=== PATIENT | female | born 1995 | race Caucasian/White ===

== ENCOUNTER 2017-01-19 08:28 | Emergency (ER) | payer OTHER ==
[~2017-01-19] VITALS: Ht 160 cm; Wt 53.5 kg
[~2017-01-19 08:28] MED LIST: GENERESS FE 0.01 CTB PO
[2017-01-19 08:58] LABS: ABSOLUTE BASOPHIL COUNT 0 /CUMM (0.0-0.2); ABSOLUTE EOSINOPHIL COUNT 0 /CUMM (0.0-0.7); ABSOLUTE LYMPH COUNT 2.2 /CUMM (1.2-3.4); ABSOLUTE MONOCYTE COUNT 0.4 /CUMM (0.10-0.60); BASOPHIL % 0.4 % (0.0-2.0); EOSINOPHIL % 0.7 % (0-5); GRANULOCYTE % 59.5 % (42.2-75.2); MEAN CORPUSCULAR HGB CONC 34.5 G/DL (33.0-37.0); MEAN CORPUSCULAR VOLUME 92.8 FL (81.0-99.0); MEAN PLATELET VOLUME 9.5 FL (7.4-10.4); PLATELET COUNT 217 /CUMM (130-400); RBC DISTRIBUTION WIDTH 13.6 % (11.5-14.5); RED BLOOD CELL CT 4.31 /CUMM (4.20-5.40); WHITE BLOOD CELL COUNT 6.8 /CUMM (4.8-10.8)
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
[2017-01-19] MEDS ORDERED: VALPROIC A250 MG/51 PO (13:28)
[2017-01-19] MEDS ORDERED: VYVANSE30 M1 PO (13:29)
[2017-01-19] MEDS ORDERED: MICROGESTIN 211 EAC1 PO (13:29)
[2017-01-19 14:21] VITALS: BP 127/67
== END 2017-01-19 15:26 ==
LOC: ERH 08:28
PROVIDERS: Physician Assistant
DX: F31.9 Bipolar disorder, unspecified (principal)
CPT/HCPCS: 80307; G0463; G0480